=== PATIENT | male | born 2005 | race Hispanic/Latino ===

== ENCOUNTER 2023-03-18 18:16 | Emergency (ER) | payer SELFPAY ==
[2023-03-18 18:18] VITALS: BP 139/71; PULSE 74; RESP 18; TEMP 36.4; O2SAT 98; BMI 23.3
[2023-03-18 19:45] VITALS: O2SAT 98
--- NOTE | 2023-03-18 19:45 | EKG12_ITS ---
Test Reason : Blood Pressure : / mmHG Vent. Rate : 067 BPM Atrial Rate : 067 BPM P-R Int : 128 ms QRS Dur : 128 ms QT Int : 362 ms P-R-T Axes : 050 058 031 degrees QTc Int : 382 ms Normal sinus rhythm Right bundle branch block Abnormal ECG Confirmed by HORTENSIA CISNEROS, MALIA ([id number]), image editor REKHA PEREYRA ([id number]) on 03/23/2023 12:28:56 PM Referred By: Confirmed By:MALIA BAZAN MD
--- NOTE | 2023-03-18 19:46 | EDS_ITS ---
HPI History of Present Illness Chief Complaint: Chest Pain Informant: patient Onset/Context/Timing Onset: Today Narrative Narrative: Patient states he has had right anterior chest pressure since waking this morning. He feels somewhat short of breath. No cough or congestion. He works at [employer] and checked his blood pressure while he was there and it was in the 160s systolic. He states his blood pressure is never elevated and this has him concerned. He is taking a an antihistamine but is not taking Benadryl or anything that he believes has stimulant in it. He denies taking significant caffeine intake. PFSH PFSH Medical History no medical history no medical history Home Medications NK 03/18/23 [History Last Taken Unknown] Allergy/AdvReac Type Severity Reaction Status Date / Time No Known Allergies Allergy Verified 03/18/23 18:18 Surgical History no surgical history Social History Smoking Status: Never smoker ROS ROS ED Constitutional Constitutional ED: Denies chills or fever(s) Eyes Eyes: Denies discharge from eye(s) ENT ENT ED: Denies discharge from eye(s), rhinorrhea or sore throat Cardiovascular Cardiovascular: Reports chest pain and racing heartbeat; Denies palpitations Respiratory/Chest Respiratory/Chest: Reports dyspnea; Denies cough Gastrointestinal Gastrointestinal: Denies abdominal pain, nausea or vomiting Genitourinary Genitourinary ED: Denies dysuria Musculoskeletal Musculoskeletal: Denies back pain or extremity pain Integumentary Denies Abrasions or rash Neurologic Neurologic: Denies headache(s) or weakness Psychiatric Psychiatric: Denies anxiety or depression Allergic/Immunologic Allergic/Immunologic ED: Denies lip swelling or urticaria EXAM Physical Exam Const Vital Signs: 03/18/23 18:18 03/18/23 19:45 03/18/23 20:20 Temperature 97.6 F L Temperature Source Temporal Pulse Rate 74 67 Respiratory Rate 18 14 Respiratory Effort Blood Pressure 139/71 H 139/73 H Blood Pressure Mean 93 95 Pulse Ox 98 98 100 Oxygen Delivery Method Room Air Room Air Room Air 03/18/23 20:20 Temperature Temperature Source Pulse Rate Respiratory Rate Respiratory Effort Normal Blood Pressure Blood Pressure Mean Pulse Ox Oxygen Delivery Method Positive well nourished and well developed General Appearance ED: well developed HEENT Reports moist mucous membranes Eyes EOMs intact bilaterally Chest Wall inspection of chest normal and palpation of chest normal Resp normal respiratory effort and clear to auscultation bilaterally Cardio regular rate and regular rhythm GI normal to inspection, nondistended, normoactive bowel sounds Extremity normal to inspection Neuro oriented x3 and no sensory deficits noted Motor Exam: strength 5/5 throughout Psych mental status grossly normal Skin no rashes or lesions noted MDM MDM MDM Narrative Medical decision making narrative: Patient placed on property assessment monitor. IV line initiated. EKG obtained to evaluate for cardiac arrhythmia/ischemia. Chest x-ray obtained to evaluate for acute lung pathology, cardiac size, or mediastinal abnormality. Labwork obtained to e valuate for leukocytosis, anemia, and electrolyte derangement. History & Record Review Discussion w/independent historian: Patient and Family Lab Data Attestation: I reviewed the patient's lab results. Labs: Laboratory Results - last 24 hr 03/18/23 20:11 WBC 8.4 RBC 5.78 Hgb 17.6 H Hct 51.5 MCV 89.1 MCH 30.4 MCHC 34.2 RDW Std Deviation 38.2 RDW Coeff of Sujatha 11.7 Plt Count 207 MPV 9.7 Immature Gran % (Auto) 0.100 Neut % (Auto) 62.3 Lymph % (Auto) 29.0 Emanuel % (Auto) 6.2 Eos % (Auto) 1.8 Baso % (Auto) 0.6 Absolute Neuts (auto) 5.2 Absolute Lymphs (auto) 2.44 Nucleated RBC % 0 D-Dimer Quant (PE/DVT) < 0.27 L Sodium 140 Potassium 4.2 Chloride 107 Carbon Dioxide 28.0 Anion Gap 5 BUN 20 H Creatinine 0.98 Estim Creat Clear Calc 125.18 Est GFR (MDRD) Af Amer 127 Est GFR (MDRD) Non-Af 105 BUN/Creatinine Ratio 20.5 H Glucose 103 Calcium 8.7 Troponin I High Sens 5 Radiography Chest X-Ray - ED: 1 View, Read by ED Physician, Normal, Heart, Lungs and Mediastinum Diagnostic Testing: Clinical Impression(s) from Imaging Studies Chest X-Ray 03/18/23 20:18 IMPRESSION: Normal x-ray examination of the chest. Electronically Signed: Joaquin Oscar MD at 20:30 EST , EKG Initial EKG: Attestation: I personally reviewed and interpreted this EKG as follows: Interpretation: Sinus Rhythm (Sinus at 67 bpm with a right bundle branch block. No prior studies available for comparison. No evidence of acute ischemia.) Treatment and Re-Evaluation :: CBC was normal white count 8.4 with a hemoglobin concentrated at 17.6. Chemistry studies unremarkable. Troponin is normal at 5 and D-dimer is less than 0.27. Portable chest x-ray per my interpretation reveals no evidence of acute abnormality and radiology interpretation is reviewed and agrees. EKG is sinus rhythm with a right bundle branch block. No prior studies available for comparison. On repeat evaluation patient resting comfortably. Blood pressure at this time is 128/68. Test results are discussed with him. He will be referred to Dr. Anders for follow-up, next doc on the no doc list. Patient encouraged to check his blood pressure on a regular basis and keep a journal of this. Return instructions given. Discharge Plan Triage Chief Complaint: Chest Pain Other Complaint: Hypertension ED Provider: Ramya Messina Dx/Rx/DC Orders Clinical Impression: Right bundle branch block, Atypical chest pain Instructions: Right Bundle Branch Block, ED Chest Pain, Uncertain Cause Prescriptions: No Action NK Primary Care Provider: Care Physician,No Primary Referrals: Sg Anders MD [Med Staff - Active Staff] - 1-2 Weeks Care Physician,No Primary [Primary Care Provider] - Activity Restrictions/Additional Instructions: You have been referred to Dr. Anders to establish primary care. You can see pa m or any of the providers in his office. When you call please advise them that you were seen in the emergency room and need follow-up. As discussed please keep a journal of your blood pressure readings as this will help your physician determine if you need any treatment. Disposition Disposition: Home, Self Care
--- NOTE | 2023-03-18 20:18 | RAD_ITS ---
STUDY: X-RAY CHEST REASON FOR EXAM: Male, 17 years old. chest pain TECHNIQUE: AP portable COMPARISON: None. FINDINGS: The lungs are clear and expanded. There is no demonstrated pleural abnormality. Normal size heart. Normal mediastinum and ty. Normal visualized pulmonary arteries. Normal visualized aortic arch and descending thoracic aorta. Normal visualized thoracic spine. Normal visualized ribs, clavicles, and shoulders. There is no demonstrated abnormality of the visualized soft tissue structures of the upper abdomen. RAD/Chest 1 View (Portable) IMPRESSION: Normal x-ray examination of the chest. Electronically Signed: Joaquin Oscar MD at 20:30 EST ,
[2023-03-18 20:20] VITALS: BP 139/73; PULSE 67; RESP 14; O2SAT 100
[2023-03-18 20:21] LABS: Absolute Lymphocyte Count 2.44 X10^3/uL (0.83-4.51); Absolute Neutrophil Count 5.2 X10^3/uL (2.0-7.7); Basophil# 0.05 X10^3/uL; Basophil% 0.6 % (0-1); Eosinophil# 0.15 X10^3/uL; Eosinophils% 1.8 % (0-5); Hematocrit 51.5 % (40-54); Hemoglobin 17.6 g/dL (13.0-16.5); Lymphocyte # 2.44 X10^3/ul (0.83-4.51); Mean Corp Hgb Conc 34.2 g/dL (32-36); Mean Corpuscular Hgb 30.4 pg (27.0-32.0); Mean Corpuscular Volume 89.1 fL (80-94); Mean Platelet Vol. 9.7 fl (6.2-12.0); Monocyte# 0.52 X10^3/uL; Monocyte% 6.2 % (0-10); NRBC Flagged by Analyzer 0 % (0-5); Neutrophil # 5.24 X10^3/uL (2.7-7.7); Neutrophil % 62.3 % (47-70); Platelet Count 207 K/mm3 (150-450); RBC Distribution Width CV 11.7 % (11.6-14.6); RBC Distribution Width SD 38.2 fl (35.1-43.9); Red Blood Count 5.78 M/mm3 (4.6-6.2); White Blood Count 8.4 K/mm3 (4.4-11.0)
[2023-03-18 20:45] LABS: D-Dimer Quantitative (DVT/PE) < 0.27 FEU/ug/m (0.27-0.49)
[2023-03-18 21:12] LABS: Anion Gap 5 (5-15); BUN 20 mg/dL (7-18); BUN/Creat Ratio 20.5 RATIO (10-20); Calcium,Total 8.7 mg/dL (8.5-10.1); Chloride 107 mmol/L (98-107); Creatinine, Serum 0.98 mg/dL (0.70-1.30); EST Glomerular Filtration Rate 105 mL/min (>60); Est Glom Filt Rate - Afr Amer 127 mL/min (>60); Estimated Creatinine Clearance 125.18 ml/min; Glucose 103 mg/dL (74-106); Potassium 4.2 mmol/L (3.5-5.1); Sodium Level 140 mmol/L (136-145); Troponin-I HS 5 pg/mL (3.0-78.0); Troponin-I HS (w/2H Reflex) 5 pg/mL (3.0-78.0)
[2023-03-18 21:42] VITALS: PULSE 66; RESP 16; O2SAT 99
[2023-03-18 22:18] LABS: Reflex Troponin-HS? (from REC) Y
== END 2023-03-18 21:46 | disposition home or self-care (01) ==
PROVIDERS: Emergency Provider Emergency Medicine; Visit Provider Emergency Medicine
DX: I45.10 Unspecified right bundle-branch block (principal); R03.0 Elevated blood-pressure reading, without diagnosis of hypertension; R07.89 Other chest pain
CPT/HCPCS: 71045; 80048; 84484; 85025; 85379; 93005; 99284; A4216

== ENCOUNTER → 2023-04-22 | Outpatient (CLI) | payer OTHER, SELFPAY ==
--- NOTE | 2023-04-22 16:02 | RAD_ITS ---
INDICATION: chest pain EXAMINATION/TECHNIQUE: X-RAY - XR Chest 2 Views COMPARISON: FINDINGS: LINES/DEVICES: None. LUNGS: No consolidation, edema or effusion. No pneumothorax. MEDIASTINUM AND CARDIOVASCULAR STRUCTURES: Cardiac silhouette not enlarged. Central airways and mediastinal contour are unremarkable. BONES AND SOFT TISSUES: Unremarkable. RAD/Chest PA and Lateral IMPRESSION: No radiographic evidence of acute cardiopulmonary disease. Electronically Signed: Gokul Castillo DO at 20:29 EST Reading Location ID and State: [facility] / [place] Tel [phone], Service support ,
== END | disposition home or self-care (01) ==
LOC: MTRAD 16:02
PROVIDERS: PCP Family Medicine; Referring Provider Family Medicine; Visit Provider Family Medicine
DX: I10 Essential (primary) hypertension (principal); R07.9 Chest pain, unspecified
CPT/HCPCS: 71046

== ENCOUNTER → 2023-07-19 | Outpatient (CLI) | payer OTHER, SELFPAY ==
[2023-07-21 15:08] LABS: Deamidated Gliadin IgA 4 units (0-19); Deamidated Gliadin IgG 5 units (0-19); Endomysial Antibody IgA Negative (Negative); Immunoglobulin A 162 mg/dL (90-386); t-Transglutaminase IgA <2 U/mL (0-3)
[2023-07-26 12:09] LABS: Alternaria tenuis <0.10 kU/L (Class 0); Ash, White <0.10 kU/L (Class 0); Aspergillus fumigatus <0.10 kU/L (Class 0); Bahia Grass <0.10 kU/L (Class 0); Bermuda Grass <0.10 kU/L (Class 0); Birch <0.10 kU/L (Class 0); Black Walnut <0.10 kU/L (Class 0); Bluegrass, Kentucky 0.11 kU/L (Class 0/I); Cat Hair / Dander,Stand <0.10 kU/L (Class 0); Cedar, Mountain <0.10 kU/L (Class 0); Cladosporium herbarum <0.10 kU/L (Class 0); Cockroach, American 0.11 kU/L (Class 0/I); Cockroach, American 0.12 kU/L (Class 0/I); Cottonwood <0.10 kU/L (Class 0); D pteronyssinus 0.46 kU/L (Class I); Dog Epithelia <0.10 kU/L (Class 0); Elm, American White <0.10 kU/L (Class 0); Hazelnut Tree <0.10 kU/L (Class 0); Hickory, White <0.10 kU/L (Class 0); Immunoglobulin E 230 IU/mL (6-495); Johnson Grass <0.10 kU/L (Class 0); Maple/Box Elder <0.10 kU/L (Class 0); Mouse Urine <0.10 kU/L (Class 0); Mucor racemosus <0.10 kU/L (Class 0); Mugwort <0.10 kU/L (Class 0); Mulberry, White <0.10 kU/L (Class 0); Nettle 0.16 kU/L (Class 0/I); Oak, White <0.10 kU/L (Class 0); Pecan <0.10 kU/L (Class 0); Penicillium Notatum <0.10 kU/L (Class 0); Pigweed, Rough <0.10 kU/L (Class 0); Plantain, English <0.10 kU/L (Class 0); Ragweed, Short/Common <0.10 kU/L (Class 0); Russian Thistle <0.10 kU/L (Class 0); Sheep Sorrel <0.10 kU/L (Class 0); Stemphylium herbarum <0.10 kU/L (Class 0); Sweet Gum <0.10 kU/L (Class 0); Sycamore, American <0.10 kU/L (Class 0); Timothy Grass <0.10 kU/L (Class 0)
== END | disposition home or self-care (01) ==
LOC: MTLAB 14:47
PROVIDERS: PCP Family Medicine; Referring Provider Family Medicine; Visit Provider Family Medicine
DX: L30.9 Dermatitis, unspecified (principal)
CPT/HCPCS: 36415; 82784; 82785; 83516; 86003; 86255

== ENCOUNTER → 2023-08-23 | Outpatient (CLI) | payer OTHER, SELFPAY ==
--- NOTE | 2023-08-23 07:55 | ECHOD_ITS ---
Reason For Study: CHEST PAIN Procedure This was a 2D Doppler, Color Flow transthoracic echocardiogram. Exam performed in department. Left Ventricle Normal LV size. The estimated ejection fraction is 60 %. Normal diastology for age. No regional wall motion abnormalities noted. Right Ventricle Normal RV size. Normal systolic function. Atria Normal left atrium. Normal right atrium. No doppler evidence for ASD. Mitral Valve There is no mitral valve stenosis. No mitral valve insufficiency. Tricuspid Valve There is no tricuspid stenosis. Unable to estimate RV systolic pressure due to inadequate jet, pulmonary artery pressure probably normal. Aortic Valve Trisinus/trileaflet aortic valve. There is no aortic stenosis. No aortic valve insufficiency. Pulmonic Valve There is no pulmonic valvular stenosis. No pulmonic valve insufficiency. Great Vessels Normal aortic root. Pericardium/Pleural No pericardial effusion. MMode/2D Measurements & Calculations LVIDd: 4.8 cm IVSd: 0.91 cm Ao root diam: 3.2 cm LVIDs: 3.4 cm LVPWd: 0.87 cm RVDd: 3.2 cm FS: 28.4 % LAV(MOD-bp): 31.8 ml LVAd ap4: 31.5 cm2 SV(MOD-sp4): 54.3 ml LAV(MOD-bp) Indexed: 16.5 ml/m2 LVLd ap4: 8.7 cm LAV(MOD-sp2): 30.7 ml EDV(MOD-sp4): 94.1 ml LAV(MOD-sp4): 30.8 ml EDV(sp4-el): 97.3 ml LVAs ap4: 18.3 cm2 LVLs ap4: 7.3 cm ESV(MOD-sp4): 39.8 ml ESV(sp4-el): 39.0 ml EF(MOD-sp4): 57.7 % EF(sp4-el): 60.0 % SV(sp4-el): 58.4 ml LA A4 area: 13.5 cm2 LA dimension(2D): 2.8 cm RA A4 area: 11.7 cm2 TAPSE: 2.1 cm Time Measurements MV dec time: 0.21 sec Doppler Measurements & Calculations MV E max dick: 92.5 cm/sec Lat Peak E' Dick: 25.2 cm/sec Med Peak E' Dick: 18.2 cm/sec MV A max dick: 44.9 cm/sec E/E' lat: 3.7 E/E' med: 5.1 MV E/A: 2.1 Ao V2 max: 109.7 cm/sec LV V1 max: 94.3 cm/sec PA V2 max: 91.9 cm/sec Ao max P.8 mmHg LV V1 max P.6 mmHg TR max dick: 243.2 cm/sec TR max P.7 mmHg ECHO/Echo Complete Interpretation Summary The estimated ejection fraction is 60 %. Normal diastology for age. Ordering Physician: Teodoro Lazo Referring Physician: Teodoro Lazo Performed By: Ary Rai, BREANNA
== END | disposition home or self-care (01) ==
PROVIDERS: PCP Family Medicine; Referring Provider Family Medicine; Visit Provider Family Medicine
DX: R07.9 Chest pain, unspecified (principal)
CPT/HCPCS: 93306

== ENCOUNTER → 2025-01-16 | Outpatient (CLI) | payer OTHER, SELFPAY ==
--- NOTE | 2025-01-16 13:47 | STEWCON_ITS ---
Reason For Study Reason For Study: CHEST PAIN Stress Results Protocol: Greg Protocol WITH DEFINITY Maximum Predicted HR: 199 bpm Target HR: 169 bpm % Maximum Predicted HR: 90 % DurationHeart Rate Stage (mm:ss) (bpm) BP Comment BASELINE 80 132/722 CC DEFINITY FOR TEST STAGE 1 3:00 100 152/80 STAGE 2 3:00 121 146/72 STAGE 3 3:00 148 164/60 STAGE 4 3:00 179 162/60 RECOVERY 110 128/70 Stress Duration: 12:00 mm:ss Maximum Stress HR: 179 bpm Baseline Echocardiogram Findings Stress Echo Wall motion Data Resting WM Intermediate WM Stress WM Doppler Measurements & Calculations TR max aayush: 219.7 cm/sec TR max P.3 mmHg ECHO/Stress Test Echo W/Contrast Interpretation Summary Exercise stress echo. 19-year-old man with a history of chest pain. Resting EKG demonstrates normal sinus rhythm with a rate of 83 bpm and a right bundle branch block. Resting blood pressure is 132/72 mmHg. The patient exercised according to regular Greg maria luisa col for a total duration of 12 minutes. The maximum heart rate attained was 181 bpm which was 90% of max impacted heart rate the maximum workload was 13.7 metabolic equivalents. At rest there were no ST or T wave changes noted suggest ischemia and at peak exercise upsloping ST changes were noted which did not meet the criteria for ischemia. No clinical angina was noted the test was terminated due to generalized fatigue. The peak blood pressure is 164/60 with a rate-press ure product of 29,000. Normal blood pressure response to exercise was noted. Stress echocardiogram. Stress echocardiogram was performed with Definity enhanc ement and demonstrated a resting ejection fraction of 60% with a peak ejection fraction of 75% and no wall motion abnorma lities noted. Conclusion: Exercise stress echocardiogram with no EKG or echocardiographic criteria for is chemia at a high workload. Ordering Physician: Bunny Greenberg Referring Physician: Bunny Greenberg Performed By: Brodwolf, Haja, RCS
== END | disposition home or self-care (01) ==
PROVIDERS: PCP Family Medicine; Referring Provider Internal Medicine Cardiovascular Disease; Visit Provider Internal Medicine Cardiovascular Disease
DX: R07.9 Chest pain, unspecified (principal); I10 Essential (primary) hypertension; I45.10 Unspecified right bundle-branch block
CPT/HCPCS: 93017; 93350; Q9957; A4216; C8928